=== PATIENT | female | born 1950 | race Caucasian/White ===

== ENCOUNTER 2023-08-06 09:43 | Inpatient (IN) | payer MEDICARE, OTHER ==
[~2023-08-06] VITALS: Ht 172.7 cm; Wt 110.2 kg
[2023-08-06] MEDS ORDERED: REMEDY ESSENTIAL ZINC PASTE 113 GM TOP PRN (13:45)
[2023-08-06 14:00] VITALS: BP 138/86; TEMP 98.1; O2SAT 96
[2023-08-06] MEDS ORDERED: BENA40TA8 PO ×2 (14:30→14:52)
[2023-08-06] MEDS ORDERED: METO-356 PO ×2 (14:30→14:54)
[2023-08-06] MEDS ORDERED: LEVO88TA5 PO (14:31)
[2023-08-06] MEDS ORDERED: LEVO100T PO (14:54)
[2023-08-06] MEDS ORDERED: ROSU10TA2 PO (14:55)
[2023-08-06] MEDS ORDERED: ASPI-495 PO (15:02)
[2023-08-06] MEDS ORDERED: AMLO5TAB4 PO (15:03)
[2023-08-06] MEDS ORDERED: MECL-159 PO (15:04)
[2023-08-06] MEDS ORDERED: OXYB5TAB16 PO (15:05)
[2023-08-06 16:00] VITALS: BP 119/68; TEMP 98.2; O2SAT 97
[2023-08-06] MEDS: AMLODIPINE 5 MG TABLET PO SCH (18:15)
[2023-08-06] MEDS ORDERED: MECLIZINE HCL 25 MG TABLET PO PRN (18:15)
[2023-08-06] MEDS: OXYBUTYNIN CHLORIDE 5 MG TABLET PO SCH (18:15)
[2023-08-06] MEDS: METOPROLOL SUCCINATE XL 25 MG TAB.SR.24H PO SCH (19:00)
[2023-08-06 20:00] VITALS: BP 134/57; TEMP 98; O2SAT 97
[2023-08-07] MEDS: LEVOTHYROXINE SODIUM 100 MCG TABLET PO SCH (08:02)
[2023-08-07] MEDS: ASPIRIN EC 81 MG TABLET.DR PO SCH (08:31)
[2023-08-07 08:32] VITALS: BP 140/71; O2SAT 97
[2023-08-07] MEDS: BENAZEPRIL HCL 20 MG TABLET PO SCH (08:32)
[2023-08-07] MEDS ORDERED: Medication Not On Formulary EA (Benazepril Hcl 40 MG) PO SCH (09:00)
[2023-08-07 09:14] LABS: BASOPHILS % (AUTO) 0.1 % (0.0-2.0); EOSINOPHILS # (AUTO) 0.1 K/uL (0.0-0.7); EOSINOPHILS % (AUTO) 1.9 % (0.0-7.0); HEMATOCRIT 40.6 % (31.2-41.9); HEMOGLOBIN 14.2 g/dL (10.9-14.3); LYMPHOCYTES # (AUTO) 2.7 K/uL (0.8-4.8); LYMPHOCYTES % (AUTO) 36.5 % (20.5-51.5); MEAN CORPUSCULAR HEMOGLOBIN 32.8 uug (24.7-32.8); MEAN CORPUSCULAR HGB CONC 35 g/dL (32.3-35.6); MEAN CORPUSCULAR VOLUME 93.8 fL (75.5-95.3); MONOCYTES # (AUTO) 0.4 K/uL (0.1-1.30); MONOCYTES % (AUTO) 4.9 % (0.0-11.0); NEUTROPHILS # (AUTO) 4.1 K/uL (1.8-8.9); NEUTROPHILS % (AUTO) 56.6 % (38.5-71.5); PLATELET COUNT (AUTO) 261 K/uL (179-408); RED BLOOD CELL COUNT(AUTO) 4.33 MIL/uL (3.63-4.92); RED CELL DISTRIBUTION WIDTH 12.8 % (12.3-17.7); WHITE BLOOD COUNT (AUTO) 7.3 K/uL (3.8-11.8)
[2023-08-07 09:37] LABS: CALCIUM 9.3 mg/dL (8.5-10.1); CARBON DIOXIDE 29 mmol/L (21-32); CHLORIDE 107 mmol/L (98-107); CREATININE 0.6 mg/dL (0.6-1.3); GLUCOSE 139 mg/dL (74-106); POTASSIUM 4.3 mmol/L (3.5-5.1); SODIUM SERUM 144 mmol/L (136-145); UREA NITROGEN, BLOOD 13 mg/dL (7-18)
[2023-08-07 09:38] LABS: DIFFERENTIAL COMMENT 1
[2023-08-07 09:48] LABS: THYROID STIMULATING HORMONE 3.336 mIU/mL (0.358-3.740)
[2023-08-07 09:51] LABS: ALANINE AMINOTRANSFERASE 16 U/L (14-59); ALBUMIN 3.6 g/dL (3.4-5.0); ALKALINE PHOSPHATASE 80 U/L (50-136); ASPARTATE AMINOTRANSFERASE < 5 U/L (15-37); BILIRUBIN,TOTAL 0.8 mg/dL (0.2-1.0); MAGNESIUM 2.1 mg/dL (1.8-2.4); NT-PRO BNP 135 pg/mL (0-125); PHOSPHOROUS 4.4 mg/dL (2.5-4.9); TOTAL PROTEIN, SERUM 7.6 g/dL (6.4-8.2)
[2023-08-07 15:37] VITALS: BP 117/60; TEMP 98.2; O2SAT 97
[2023-08-07 20:24] VITALS: BP 115/54; TEMP 97.8; O2SAT 97
[2023-08-08] MEDS: IBUPROFEN 600 MG TABLET PO PRN (08:30)
[2023-08-08 11:23] VITALS: BP 135/69; TEMP 98.1; O2SAT 95
[2023-08-08] MEDS: LIDOCAINE HCL 1% 20 ML VIAL IJ ONE (13:30)
[2023-08-08] MEDS: TRIAMCINOLONE ACETONIDE 40 MG/1 ML VIAL IJ ONE (13:30)
[2023-08-08 16:09] LABS: CREATININE 0.5 mg/dL (0.6-1.3); UREA NITROGEN, BLOOD 15 mg/dL (7-18)
[2023-08-08] MEDS ORDERED: IV NORMAL SALINE 250 ML IV ONE (16:27)
[2023-08-08] MEDS ORDERED: IOHEXOL 300MG/ML 100 ML INFUS..BTL ONE (16:28)
[2023-08-08] MEDS ORDERED: SWABABLE VALVE TRANSFER SET EA MC ONE (16:28)
[2023-08-08 16:34] VITALS: BP 167/81; TEMP 98; O2SAT 98
[2023-08-08 20:00] VITALS: BP 138/70; TEMP 97.9; O2SAT 96
[2023-08-09 11:54] VITALS: BP 109/52; TEMP 98.3; O2SAT 94
[2023-08-09 20:00] VITALS: BP 107/41; TEMP 98.2; O2SAT 95
[2023-08-10 06:38] VITALS: BP 123/53; TEMP 98.2; O2SAT 98
[2023-08-10 11:50] LABS: *BILIRUBIN,URIN NEGATIVE (NEGATIVE); *CLARITY,URINE CLEAR (CLEAR); *COLOR,URINE YELLOW (YELLOW); *KETONES,URINE NEGATIVE (NEGATIVE); *PROTEIN,URINE NEGATIVE (NEGATIVE); *UROBILINOGEN,URINE 0.2 E.U./dl (NORMAL); LEUKOCYTE ESTERASE ,URINE NEGATIVE (NEGATIVE); NITRITE, URINE NEGATIVE (NEGATIVE); PH,URINE 6.5 (5.0-8.0); UGLUCOSE NEGATIVE (NEGATIVE)
[2023-08-10 11:56] LABS: *BLOOD, URINE TRACE (NEGATIVE)
[2023-08-10 12:16] LABS: BACTERIA,URINE MODERATE /HPF (NONE SEEN); SQUAMOUS EPITHELIAL CELL,UR MODERATE /HPF (NONE SEEN); WBC,URINE 0-3 /HPF (0-3)
[2023-08-10 16:58] VITALS: BP 143/82; TEMP 98.5; O2SAT 95
[2023-08-10 19:30] VITALS: BP 138/60; TEMP 97.7; O2SAT 97
[2023-08-11 06:24] VITALS: BP 129/54; TEMP 97.8; O2SAT 96
[2023-08-11 10:28] VITALS: BP 108/62; TEMP 97.8; O2SAT 97
== END 2023-08-11 16:36 | disposition home health service (06) | DRG 948 ==
PROVIDERS: ADMIT Internal Medicine; ATTEND Physical Medicine & Rehabilitation Pain Medicine
DX: R53.1 Weakness (principal); E03.9 Hypothyroidism, unspecified; E66.01 Morbid (severe) obesity due to excess calories; Z68.36 Body mass index [BMI] 36.0-36.9, adult; I11.0 Hypertensive heart disease with heart failure; I50.9 Heart failure, unspecified; F17.210 Nicotine dependence, cigarettes, uncomplicated; G89.29 Other chronic pain; Z91.81 History of falling; M79.605 Pain in left leg; E78.5 Hyperlipidemia, unspecified; L72.3 Sebaceous cyst; D17.1 Benign lipomatous neoplasm of skin and subcutaneous tissue of trunk; Z79.82 Long term (current) use of aspirin; Z90.49 Acquired absence of other specified parts of digestive tract; M19.90 Unspecified osteoarthritis, unspecified site; M17.12 Unilateral primary osteoarthritis, left knee
CPT/HCPCS: 36415; 71045; 71260; 73560; 83735; 84100; 84443; 84520; 85025; 85610; 93307; A4663; J3301; J3490; Q9967

== ENCOUNTER 2023-10-04 10:20 | Day surgery (SDC) | payer MEDICARE, OTHER ==
[~2023-10-04 10:20] MED LIST: AMLO5TAB4 PO; ASPI-495 PO; BENA40TA8 PO; CEFAZOLIN 2 G in IV DEXTROSE 5% 100 ML IV ONE; LEVO100T PO; MECL-159 PO; METO-356 PO; OXYB5TAB16 PO; ROSU10TA2 PO
[2023-10-04] MEDS ORDERED: BUPIVACAINE/EPI PF 0.25% 10 ML VIAL IJ ONE (11:17)
[2023-10-04] MEDS ORDERED: BACITRACIN/POLYMYXIN B OINT 15 GM TUBE ONE (11:18)
[2023-10-04] MEDS ORDERED: LIDOCAINE HCL 1% 20 ML VIAL ONE (11:18)
[2023-10-04 15:27] VITALS: TEMP 98
== END 2023-10-04 15:30 | disposition home or self-care (01) ==
LOC: DS 10:20
PROVIDERS: ATTEND Surgery
DX: R22.2 Localized swelling, mass and lump, trunk (principal); L72.8 Other follicular cysts of the skin and subcutaneous tissue; I10 Essential (primary) hypertension; M19.90 Unspecified osteoarthritis, unspecified site; F32.9 Major depressive disorder, single episode, unspecified; F17.210 Nicotine dependence, cigarettes, uncomplicated; Z53.8 Procedure and treatment not carried out for other reasons; Z79.82 Long term (current) use of aspirin; Z79.899 Other long term (current) drug therapy; Z98.890 Other specified postprocedural states; Z82.49 Family history of ischemic heart disease and other diseases of the circulatory system
CPT/HCPCS: 11406; 12032; 71045; J0690; J3490; J7120; A4649; A4663